=== PATIENT | female | born 1970 | race Hispanic/Latino ===

== ENCOUNTER 2021-12-21 08:18 | Outpatient (CLI) | payer BC | END 2021-12-21 08:19 | disposition home or self-care (01) | LOC: BICMAMMO 08:18 | PROVIDERS: ATTEND Family Medicine | DX: C50.812 Malignant neoplasm of overlapping sites of left female breast (principal); R22.32 Localized swelling, mass and lump, left upper limb; N63.25 Unspecified lump in the left breast, overlapping quadrants; Z98.890 Other specified postprocedural states | CPT/HCPCS: 19083; 77066; 88305; G0279 ==

== ENCOUNTER 2022-01-03 13:14 | Outpatient (CLI) | payer BC | END 2022-01-03 13:15 | disposition home or self-care (01) | LOC: ULT 13:14 | PROVIDERS: ATTEND Internal Medicine Hematology & Oncology | DX: Z51.11 Encounter for antineoplastic chemotherapy (principal); C50.112 Malignant neoplasm of central portion of left female breast; I08.1 Rheumatic disorders of both mitral and tricuspid valves | CPT/HCPCS: 93306 ==

== ENCOUNTER 2022-01-07 08:25 | Outpatient (CLI) | payer BC | END 2022-01-07 08:26 | disposition home or self-care (01) | LOC: CT 08:25 | PROVIDERS: ATTEND Internal Medicine Hematology & Oncology | DX: C50.112 Malignant neoplasm of central portion of left female breast (principal); N63.20 Unspecified lump in the left breast, unspecified quadrant; R91.8 Other nonspecific abnormal finding of lung field; K76.89 Other specified diseases of liver | CPT/HCPCS: 71260; 74177; 78306; A9503 ==

== ENCOUNTER 2022-01-08 10:14 | Outpatient (CLI) | payer BC ==
[2022-01-08 21:50] LABS: SARS-CoV-2 PCR by NAA Not Detected (NotDetected)
== END 2022-01-08 10:15 | disposition home or self-care (01) ==
LOC: LABBT 10:14
PROVIDERS: ATTEND Specialist
DX: Z01.818 Encounter for other preprocedural examination (principal); C50.919 Malignant neoplasm of unspecified site of unspecified female breast; Z20.822 Contact with and (suspected) exposure to COVID-19
CPT/HCPCS: 93005; 93010; U0003; U0005

== ENCOUNTER 2022-07-02 12:02 | Outpatient (CLI) | payer BC ==
[2022-07-02 13:27] LABS: Hemoglobin 9.9 g/dL (12.0-15.5); Mean Corpuscular Hemoglobin 31.7 pg (27.0-33.0); Mean Corpuscular Volume 96.2 fl (81.6-98.3); Platelet Count 134 10x3/uL (150-450); Red Blood Cell (RBC) Count 3.12 10x6/uL (3.90-5.03); White Blood Cell (WBC) Count 1.7 10x3/uL (3.5-10.5)
[2022-07-02 13:28] LABS: MDiff Complete? YES
[2022-07-02 15:36] LABS: Reactive Lymphocytes 1 % (0-10)
[2022-07-02 15:38] LABS: Lymphocytes 42 % (21-51)
[2022-07-02 15:39] LABS: Monocytes 23 % (0-10); Neutrophil 33 % (42-75); Platelet Morphology Comment Appears Decreased
== END 2022-07-02 12:03 | disposition home or self-care (01) ==
LOC: LABBT 12:02
PROVIDERS: ATTEND Specialist
DX: Z01.818 Encounter for other preprocedural examination (principal); Z20.822 Contact with and (suspected) exposure to COVID-19
CPT/HCPCS: 85025; 87811; 93005; 93010

== ENCOUNTER 2022-07-03 06:42 | Day surgery (SDC) | payer BC ==
[2022-07-02 12:30] VITALS: BMI 28.5
[2022-07-03] MEDS ORDERED: Acetaminophen 500 MG TAB ONE (09:21)
[2022-07-03] MEDS ORDERED: Ketorolac Tromethamine 30 MG/ML VIAL ONE (09:21)
[2022-07-03] MEDS ORDERED: Gabapentin 300 MG CAP ONE (09:21)
[2022-07-03] MEDS ORDERED: Scopolamine 1.5 mg/72 hour Patch ONE (09:21)
[2022-07-03] MEDS ORDERED: Midazolam HCl 2 mg/2 ml Vial ONE (10:12)
[2022-07-03] MEDS ORDERED: fentaNYL Citrate/PF 100 MCG/2 ML SYRINGE ONE (10:13)
[2022-07-03] MEDS ORDERED: Bupivacaine PF 0.5% 30 ML VIAL ONE (10:22)
[2022-07-03] MEDS ORDERED: Bupivacaine/Epinephrine 0.25% 30 ML VIAL ONE ×2 (10:22→10:57)
[2022-07-03] MEDS ORDERED: Sodium Chloride 0.9% 100 ML ONE (10:32)
[2022-07-03] MEDS ORDERED: CEFAZOLIN 2 GM VIAL ONE (10:32)
[2022-07-03] MEDS ORDERED: Ondansetron PF 4 MG/2 ML Vial ONE (10:41)
[2022-07-03] MEDS ORDERED: PROPOFOL 200 MG/20 ML VIAL ONE (10:41)
[2022-07-03] MEDS ORDERED: Dexamethasone 20 MG/5 ML VIAL ONE (10:41)
[2022-07-03] MEDS ORDERED: ePHEDrine 50 MG/ML VIAL ONE (10:41)
[2022-07-03] MEDS ORDERED: Isosulfan Blue 50 MG/5 ML VIAL ONE (10:47)
[2022-07-03] MEDS ORDERED: Methylene Blue 50 MG/10 ML AMPUL ONE (10:47)
[2022-07-03] MEDS ORDERED: HYDROcodone/Acetaminophen 5/325 mg Tablet ONE (13:36)
== END 2022-07-03 14:39 | disposition home or self-care (01) ==
LOC: SDC 06:42
PROVIDERS: ATTEND Specialist
PROC: 0HBV0ZZ Excision of Bilateral Breast, Open Approach (ICD-10-PCS; principal; 2022-07-03)
PROC: 07B60ZX Excision of Left Axillary Lymphatic, Open Approach, Diagnostic (ICD-10-PCS; principal; 2022-07-03)
DX: C50.312 Malignant neoplasm of lower-inner quadrant of left female breast (principal); D24.2 Benign neoplasm of left breast; L72.0 Epidermal cyst; Z17.0 Estrogen receptor positive status [ER+]; Z91.013 Allergy to seafood
CPT/HCPCS: 19281; 76098; 78195; 88304; 88307; 88341; 88342; A9541; J0690; J1100; J1642; J1885; J2250; J2405; J2704; J3490; Q9968; S0020

== ENCOUNTER 2022-10-23 14:33 | Outpatient (CLI) | payer BC | END 2022-10-23 14:34 | disposition home or self-care (01) | LOC: BICRAD 14:33 | PROVIDERS: ATTEND Family Medicine | DX: M25.512 Pain in left shoulder (principal) ==

== ENCOUNTER 2024-03-24 13:09 | Outpatient (CLI) | payer BC | END 2024-03-24 13:10 | disposition home or self-care (01) | LOC: BICMAMMO 13:09 | PROVIDERS: ATTEND Internal Medicine Hematology & Oncology | DX: Z08 Encounter for follow-up examination after completed treatment for malignant neoplasm (principal); Z85.3 Personal history of malignant neoplasm of breast | CPT/HCPCS: 77066; G0279 ==

== ENCOUNTER 2025-08-17 14:37 | Outpatient (CLI) | payer BC | END 2025-08-17 14:38 | disposition home or self-care (01) | LOC: BICMAMMO 14:37 | PROVIDERS: ATTEND Internal Medicine Hematology & Oncology | DX: M81.0 Age-related osteoporosis without current pathological fracture (principal); C50.112 Malignant neoplasm of central portion of left female breast; D70.1 Agranulocytosis secondary to cancer chemotherapy; D50.0 Iron deficiency anemia secondary to blood loss (chronic); M85.852 Other specified disorders of bone density and structure, left thigh | CPT/HCPCS: 77080 ==